=== PATIENT | female | born 1990 | race African-American/Black ===

== ENCOUNTER 2016-08-08 08:51 | Emergency (ER) | payer OTHER ==
[2016-08-08] MEDS ORDERED: KETOROLAC 60 MG/2 ML VIAL IVP STA (10:15)
[2016-08-08] MEDS ORDERED: SODIUM CHLORIDE 0.9% 1,000 ML IV ONE ×2 (10:15→10:17)
[2016-08-08] MEDS ORDERED: ONDANSETRON 4 MG/2 ML VIAL IVP STA (10:15)
[2016-08-08] MEDS ORDERED: KETOROLAC 30 MG/ML VIAL ONE (11:45)
[2016-08-08] MEDS ORDERED: ONDANSETRON 4 MG/2 ML VIAL ONE (11:45)
[2016-08-08] MEDS ORDERED: HYDROmorphone 1 MG/ML SYRINGE IVP STA (12:49)
[2016-08-08] MEDS ORDERED: DOXYCYCLINE 100 MG TABLET PO STA (12:49)
[2016-08-08] MEDS ORDERED: cefTRIAXone 1 GM in SODIUM CHLORIDE 0.9% MINIBAG 100 ML IV STA (12:49)
[2016-08-08] MEDS ORDERED: cefTRIAXone 1 GM VIAL ONE (12:57)
[2016-08-08] MEDS ORDERED: DOXYCYCLINE 100 MG TABLET PO ONE (12:57)
[2016-08-08] MEDS ORDERED: HYDROmorphone 1 MG/ML SYRINGE ONE (12:57)
== END 2016-08-08 13:48 | disposition home or self-care (01) ==
DX: N76.0 Acute vaginitis (principal)
CPT/HCPCS: 36415; 51798; 76830; 76856; 80053; 81003; 83690; 84703; 85025; 87210; 87491; 87591; 93976; 96374; 96375; 99283; 99284; A9270; J1170

== ENCOUNTER 2017-02-25 10:22 | Emergency (ER) | payer OTHER ==
[2017-02-25 11:52] LABS: RAPID STREP SCREEN REAGENT QC YELLOW (YELLOW)
--- NOTE | 2017-02-25 12:50 | ED Physician Documentation ---
History of Present Illness - Stated complaint Stated Complaint: VOMITING/COUGH - Chief complaint Chief Complaint: General - Additonal information Additional information: hx from pt 26 y/o f [place] cough sore throat body aches and R ear pain since yesterday and vomiting no recent travel or sick contacts LMP 12/22 but states neg HCG test last week had an appt at [facility] today but came to the ER instead Review of Systems Constitutional: reports: Fever, Myalgias Ears: reports: Ear pain Throat: reports: Sore throat Respiratory: reports: Cough GI: reports: Vomiting Endocrine: denies: Easy bruising / bleeding Immunocompromised: denies: Immunocompromised PD PAST MEDICAL HISTORY - Past Medical History Past Medical History: No Cardiovascular: Hypertension DOCK ATTENDANT: None : None - Past Surgical History Past Surgical History: No - Present Medications Home Medications: Ambulatory Orders Medication Instructions Recorded Confirmed Azithromycin [Zithromax] 250 mg PO DAILY #6 tablet 02/25/17 Benzonatate [Tessalon] 100 mg PO TID PRN #20 capsule 02/25/17 Oxymetazoline HCl [Afrin] 2 spray NS BID PRN #1 bottle 02/25/17 guaiFENesin/DEXTROMETHORPHAN 10 ml PO Q6H PRN #120 ml 02/25/17 [Robitussin Dm] - Allergies Allergies/Adverse Reactions: Allergies Allergy/AdvReac Type Severity Reaction Status Date / Time latex Allergy Rash Verified 08/08/16 09:00 - Social History Does the pt smoke?: Yes Smoking Status: Current every day smoker Does the pt drink ETOH?: Yes Does the pt have substance abuse?: No - Immunizations Immunizations are current?: Yes PD ED PE NORMAL - Vitals Vital signs reviewed: Yes - HEENT HEENT: Other (erytema and exudate, 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 No: Ears normal (R AOM) - Neck Neck: Supple, no meningeal sign - Cardiac Cardiac: RRR - Respiratory Respiratory: No respiratory distress, Clear bilaterally - Abdomen Abdomen: Soft, Non tender - Extremities Extremities: No edema, No calf tenderness / cord - Neuro Neuro: Alert and oriented X 3 Results - Vitals Vitals: Vital Signs - 24 hr 02/25/17 10:32 Temperature 36.5 C Heart Rate 99 Respiratory 18 Rate Blood Pressure 134/91 H O2 Saturation 98 Oxygen O2 Source Room air - Labs Labs: Laboratory Tests 02/25/17 11:19 Group A Strep Rapid Negative PD MEDICAL DECISION MAKING - ED course ED course: can't give urine for HCG has AOM so defer CXR as will not change tx will dc with tessalon zmax and afrin Departure - Departure Disposition: 01 Home, Self Care Clinical Impression: Otitis media Qualifiers: Otitis media type: suppurative Chronicity: acute Laterality: right Recurrence: not specified as recurrent Spontaneous tympanic membrane rupture: without spontaneous rupture Qualified Code(s): H66.001 - Acute suppurative otitis media without spontaneous rupture of ear drum, right ear Condition: Good Instructions: ED Otitis Media Acute Adult Prescriptions: Oxymetazoline HCl [Afrin] 2 spray NS BID PRN #1 bottle PRN Reason: nasal sinus ear congestion guaiFENesin/DEXTROMETHORPHAN [Robitussin Dm] 10 ml PO Q6H PRN #120 ml PRN Reason: Cough Benzonatate [Tessalon] 100 mg PO TID PRN #20 capsule PRN Reason: to ease cough Azithromycin [Zithromax] 250 mg PO DAILY #6 tablet Comments: I wrote you a note to miss work today Follow up with your command for duty status after that And follow up to get your blood pressure rechecked - it was high today
[2017-02-25 13:09] VITALS: BP 157/96
== END 2017-02-25 13:19 | disposition home or self-care (01) ==
LOC: ED 10:22
DX: H66.001 Acute suppurative otitis media without spontaneous rupture of ear drum, right ear (principal); J02.9 Acute pharyngitis, unspecified; R05 Cough; R11.10 Vomiting, unspecified; I10 Essential (primary) hypertension; F17.200 Nicotine dependence, unspecified, uncomplicated
CPT/HCPCS: 87070; 87430; 99283